=== PATIENT | female | born 1945 | race Caucasian/White ===

== ENCOUNTER 2016-11-27 14:05 | Emergency (ER) | payer MEDICARE, OTHER | END 2016-11-27 15:35 | disposition home or self-care (01) | LOC: D.ER 14:05 | DX: L03.116 Cellulitis of left lower limb (principal); J45.909 Unspecified asthma, uncomplicated ==

== ENCOUNTER → 2017-06-02 09:56 | Outpatient (CLI) | payer MEDICARE, OTHER ==
[2015-11-13 09:22] VITALS: BMI 23.8
[~2017-06-02 09:56] MED LIST: ADVAIR 250/501 DISK INH; ASPIRIN 81 MG E81 MG PO; BETAPACE 80 MG80 MG PO; BUSPIRONE HCL30 MG PO; CYCLOBENZAPRINE10 MG PO; CYMBALTA60 MG PO; FLEXERIL10 MG PO; HEART MED PO; HYDROCODONE-APA1 TAB PO; K-TAB10 MEQ PO; MULTAQ400 MG PO; NEXIUM40 MG PO; NITROSTAT0.4 MG SL; NORCO 10/325 TA1 TA1 PO; PHENERGAN25 M1 PO; PLAVIX75 MG; PREMARIN0.625 MG PO; PROTONIX40 MG PO; SINGULAIR10 MG PO; SKELAXIN800 MG PO; SPIRIVA18 MCG INH; TIROSINT25 MCG PO; TOPROL XL25 MG PO; TORADOL10 MG PO; ULTRAM50 MG PO; VESICARE5 MG PO; ZANAFLEX2 M1 PO
== END | disposition home or self-care (01) ==
LOC: D.US 09:56
DX: R31.9 Hematuria, unspecified (principal)

== ENCOUNTER → 2017-06-08 10:17 | Outpatient (CLI) | payer MEDICARE, OTHER ==
[2015-11-13 09:22] VITALS: BMI 23.8
== END | disposition home or self-care (01) ==
LOC: D.CT 10:17
DX: N28.1 Cyst of kidney, acquired (principal)

== ENCOUNTER → 2018-05-25 08:00 | Outpatient (CLI) | payer MEDICARE, OTHER ==
[2015-11-13 09:22] VITALS: BMI 23.8
== END | disposition home or self-care (01) ==
LOC: D.MAMMO 05-04 16:00
PROVIDERS: ATTEND Family Medicine
DX: Z12.31 Encounter for screening mammogram for malignant neoplasm of breast (principal)

== ENCOUNTER → 2018-12-28 12:56 | Outpatient (CLI) | payer MEDICARE, OTHER ==
[2015-11-13 09:22] VITALS: BMI 23.8
[~2018-12-28 12:56] MED LIST changes: +CARDIZEM120 MG PO; +HYDRALAZINE HCL25 MG PO; +LINZESS72 MCG PO; +VITAMIN D250000 UNIT PO
--- NOTE | 2019-01-08 11:40 | EC ---
PATIENT:CHARLETTE ZACARIAS DATE OF SERVICE: 12/28/18 SEX: F MEDICAL RECORD: [id number] DATE OF : 49 LOCATION:[facility] AGE OF PATIENT: 73 ADMISSION DATE: 12/28/18 REFERRING PHYSICIAN: INTERPRETING PHYSICIAN: LIBAN LAWSON MD ECHOCARDIOGRAM REPORT ECHO CHARGES 4 ECHO COMPLETE Date: 12/28/18 CLINICAL DIAGNOSIS: SVT/MR/SOB H/O HTN ECHOCARDIOGRAPHIC MEASUREMENTS (adult normal given) AC root (d.<3.7cm) 2.9 cm LV Septum d (<1.2 cm> 1.1 cm Valve Excursion 1.9 cm LV Septum (systole) 1.5 cm Left Atria (s.<4.0cm> 2.9 cm LVPW d(<1.2cm) 1.1 cm RV (d.<2.3cm) 3.3 cm LVPW (sytole) 1.6 cm LV diastole(<5.6CM) 4.5 cm MV E-F(>70mm/sec) cm LV systole 2.7 cm LVOT Diameter 2.0 cm MV exc.(>10mm) cm Est.ejection fraction (50-75%) % DOPPLER: LVIT cm/sec A 77.0 cm/sec E 65.0 cm/sec LA cm/sec RVSP 29.0 mmHg LVOT 97.0 cm/sec AOP1/2T m/s Asc. Ao 134 cm/sec RVOT 58.0 cm/sec RA cm/sec PA 86.0 cm/sec AV Gradient Peak 7.2 mmHg AV Mean 3.7 mmHg AV Area 1.9 cm MV Gradient Peak 3.9 mmHg MV Mean 1.3 mmHg MV Area cm COMMENTS: OP - HC Bottom Filler: 1 [place] General Manager Land Department: 1 Dr. Lawson TAPE# PACS Pericardial Effusion Y DATE OF SERVICE: FINDINGS: 1. Left ventricular chamber size is within normal limits. Left ventricular systolic function is normal. Overall ejection fraction estimated at 55% to 60%. 2. Left atrium, right atrium, and right ventricular chamber sizes are within normal limits. 3. Valvular structures have normal structure and motion. 4. Doppler interrogation reveals mild mitral regurgitation, mild tricuspid regurgitation, no other valvular insufficiency or stenosis. Pulmonary systolic ECHOCARDIOGRAM REPORT [id number] CHARLETTE ZACARIAS pressure is normal, estimated at 29 mmHg. 5. Small pericardial effusion is present. This is not hemodynamically significant. No evidence of left ventricular thrombus. TRANSINT:[id number] Voice Confirmation ID: [id number] DOCUMENT ID: [id number] LIBAN LAWSON MD at 1140 CC: [id number] DICTATION DATE: 12/30/18 1016 SERVICE DELIVERY MANAGEMENT CONSULTANT: 12/30/18 1131 DEP CLI 12/28/18 [id number] [place] [address]
== END | disposition home or self-care (01) ==
LOC: D.HCCECHO 12:56
PROVIDERS: ATTEND Internal Medicine Interventional Cardiology
DX: R06.00 Dyspnea, unspecified (principal)

== ENCOUNTER → 2019-01-17 09:47 | Outpatient (CLI) | payer MEDICARE, OTHER ==
[2015-11-13 09:22] VITALS: BMI 23.8
--- NOTE | 2019-01-23 10:41 | ST ---
PATIENT:CHARLETTE ZACARIAS MEDICAL RECORD: [id number] SEX: F LOCATION:[facility] ORDER #: ADMISSION DATE: 01/17/19 AGE OF PATIENT: 73 REFERRING PHYSICIAN: INTERPRETING PHYSICIAN: LIBAN THOMPSON MD DATE OF SERVICE: 01/17/2019 PROCEDURE: Nuclear stress test. INDICATION: Angina, hypertension and dysrhythmia ? supraventricular tachycardia. She was exercised on standard Lexiscan protocol with 27 mCi of sestamibi injected at peak stress, 8 mCi were used previously for rest images. FINDINGS: Gated SPECT reveals preserved ejection fraction at 64% with good wall motioning and thickening and brightening throughout all segments. SPECT imaging Cardiolite was used as myocardial perfusion agent. There is reversible ischemia anteriorly and apically. This includes the basal, mid, apical anterior segments as well as the apex itself. The degree of reversibility is moderate. The amount of myocardium involved is moderate. OVERALL IMPRESSION: This is an intermediate risk nuclear stress test showing reversible ischemia throughout the anterior and apical segment suggestive of hemodynamically significant coronary artery disease. TRANSINT:[id number] Voice Confirmation ID: [id number] DOCUMENT ID: [id number] LIBAN THOMPSON MD at 1041 CC: NOAH KIRBY [id number] DICTATION DATE: 01/18/19819 FRONT SIGHT ATTACHER: 01/19/19 0208 DEP CLI 01/17/[address] [address]
== END | disposition home or self-care (01) ==
LOC: D.HCCARDIO 09:47
PROVIDERS: ATTEND Internal Medicine Interventional Cardiology
DX: I20.9 Angina pectoris, unspecified (principal)

== ENCOUNTER 2019-01-25 09:02 | Outpatient (CLI) | payer MEDICARE, OTHER ==
[~2019-01-25] VITALS: Ht 170.2 cm; Wt 72.7 kg
--- NOTE | ~2019-01-25 | HEMODYNAMI ---
PATIENT:CHARLETTE ZACARIAS MEDICAL RECORD: [id number] : 49 LOCATION:[facility] ADMISSION DATE: 01/25/19 Generatedon:01/25/201913:07 Patient name: CHARLETTE ZACARIAS Patient #: [id number] SSN: [id number] : 1945 Date of study: 01/25/2019 Page: Of Hemodynamic Procedure Report Patient Data Patient Demographics Procedure consent was obtained First Name: CHARLETTE Gender: Female Last Name: DEANN : 1945 Middle Initial: L Age: 73 year(s) Patient #: [id number] Race: SSN: [id number] Additional ID: [id number] Contact details [address]: [address] [place] [address] ROAD State: [place] City: [place] Zip code: [address] Past Medical History Performed procedures and imaging results Date Procedure Procedure Results Comments Stress testing Positive->Intermediate with SPECT MPI risk Allergies Allergen Reaction Date Comments Reported Other allergy 06/15/2015 penicillin, sulfa Other allergy 01/25/2019 PCN, SULFA Admission Admission Data Admission Date: 01/25/2019 Admission Time: 9:02 Arrival Date: 01/25/2019 Arrival Time: 0:00 Height (in.): 67 BSA: 1.82 (m2) Height (cm.): 170.18 BMI: 24.59 (kg/m2) Weight (lbs.): 157 Weight (kg.): 71.21 Lab Results Lab Result Date: 01/25/2019 Lab Result Time: 0:00 Biochemistry Name Units Result Min Max BUN mg/dl 30 --(----)-* 7 18 Creatinine mg/dl 1.9 --(----)-* 0.6 1.3 eGFR ml/min 28 *-(----)-- 90 120 NONAFRICAN CBC Name Units Result Min Max Hematocrit % 37.9 *-(----)-- 42 54 Hemoglobin g/dl 12.6 -*(----)-- 13.5 17.5 Procedure Procedure Types Cath Procedure Diagnostic Procedure [facility] w/Coronaries Procedure Description Procedure Date Procedure Date: 01/25/2019 Procedure Start Time: 12:56 Procedure End Time: 13:05 Procedure Staff Name Function Fran Lawson MD Performing Physician Demi Hendricks RT Monitor Luisa Washington RT Scrub Shana Covington RN Nurse Procedure Data Cath Procedure Fluoroscopy Diagnostic fluoroscopy Total fluoroscopy Time: 1.2 time: 1.2 min min Diagnostic fluoroscopy Total fluoroscopy dose: 238 dose: 238 mGy mGy Contrast Material Contrast Material Type Amount (ml) Isovue 300 55 Entry Location Entry Primary Successful Side Size Upsize Upsize Entry Closure Ruiz ccessful Closure Location (Fr) 1 (Fr) 2 (Fr) Remarks Device Remarks Radial Right 6 Fr Mechanical artery Short Compression Estimated blood loss: 5 ml Diagnostic catheters Device Type Used For End Catheter Placement DIAGNOSTIC [place] 110cm 5 Procedure Fr catheter ([id number]) Procedure Complications No complications Procedure Medications Medication Administration Route Dosage Oxygen etCO2 Nasal cannula 2 l/min Lidocaine 2% added to field 20 Heparin Flush Bag added to field 2 bags (1000units/500ml NS) 0.9% NaCl I.V. 100 ml/hr Radial Cocktail I.A. 1 syringe (Verapamil 2mg/Nitro 400mcg/Heparin 1500units) Versed I.V. 2 mg Fentanyl I.V. 100 mcg Versed I.V. 2 mg Fentanyl I.V. 100 mcg Hemodynamics Rest BSA: 1.82 (m2) O2 Consumption: Estimated: 174.55 (ml/min) O2 Consumption indexed : Estimated:95.91 (ml/min/m) Heart Rate: 81 (bpm) Snapshots Pre Cath Intra NCS Post Cath Vital Signs Time Heart Resp SPO2 etCO2 NIBP (mmHg) Rhythm Pain Sedation Rate (ipm) (%) (mmHg) Status Level (bpm) 12:48:40 77 12 97 43.2 172/84(126) NSR 0 (11) 10(A) , No pain 12:53:00 78 16 95 19.7 154/80(122) NSR 0 (11) 10(A) , No pain 12:57:24 75 19 96 36.3 149/70(125) NSR 0 (11) 10(A) , No pain 13:01:36 76 14 95 45.4 118/66(94) NSR 0 (11) 9(A) , No pain 13:04:14 77 21 96 37.1 123/68(93) NSR 0 (11) 10(A) , No pain Medications Time Medication Route Dose Verified Delivered Reason Notes Effectiveness by by 12:54:20 Oxygen etCO2 2 l/min Fran Saldana used for Nasal Renny Covington RN procedure cannula 12:54:29 Lidocaine 2% added 20ml Fran Peters for local to vial Renny Lawson MD anesthetic field 12:54:35 Heparin Flush added 2 bags Fran Peters used for Bag to Renny Lawson MD procedure (1000units/500ml field NS) 12:54:44 0.9% NaCl I.V. 100 Fran Saldana Per ml/hr Renny Covington RN physician 12:56:36 Versed I.V. 2 mg Fran Saldana for sedation Renny Covington RN 12:56:42 Fentanyl I.V. 100 mcg Fran Saldana for sedation Renny Covington RN 12:57:52 Radial Cocktail I.A. 1 Fran Peters for (Verapamil syringe Renny Lawson MD vasodilation 2mg/Nitro 400mcg/Heparin 1500units) 13:00:01 Versed I.V. 2 mg Fran Saldana for sedation Renny Covington RN 13:00:04 Fentanyl I.V. 100 mcg Fran Saldana for sedation Renny Covington RN Procedure Log Time Note 12:28:02 Informed consent obtained and on chart 12:29:04 Procedure Status Elective Heart Cath (OP). 12:29:05 Time tracking: Stay late (Procedures after 5:00pm) 12:29:09 Plan of Care:Hemodynamics will remain stable., Cardiac rhythm will remain stable., Comfort level will be maintained., Respiratory function will remain adequate., Patient/ family verbilizes understanding of procedure., Procedure tolerated without complication., Recovers from procedure without complications.. 12:29:21 H&P Date Dictated: 01/10/2019 Within 30 days and on chart., H&P Addendum completed by physician on day of procedure. (MUST COMPLETE FOR ALL OUTPATIENTS). 12:29:58 Patient allergic to Other allergyPCN, SULFA 12:30:58 Luisa NIELSEN(R) sent for patient. Start room use. 12:31:33 Lab Result : BUN 30 mg/dl 12::33 Lab Result : Creatinine 1.9 mg/dl 12::33 Lab Result : eGFR NONAFRICAN 28 ml/min 12::33 Lab Result : Hematocrit 37.9 % 12::33 Lab Result : Hemoglobin 12.6 g/dl 12:31:36 Lab results completed and on chart. 12:32:13 Stress Test: yes; abnormal ANTERIOR AND APICAL 12:34:52 ACC Patient presents with Stable Angina CCS Anginal Class 3--Marked limitation of physical activity, angina occurs with ordinary activity.. 12:37:53 Patient received from Pre/Post Procedure Room to CCL 1 Alert and oriented. Tansferred to table in Supine position. 12:37:55 Warm blankets applied, and terrence hugger turned on for patient comfort. 12:37:55 Correct patient and procedure confirmed by team. 12:37:56 ECG and BP/O2 sat monitors applied to patient. 12:47:22 Vital chart was started 12:47:23 Full Disclosure recording started 12:47:25 Pre-procedure instructions explained to patient. 12:47:25 Pre-op teaching completed and patient verbalized understanding. 12:47:27 Family in patients room. 12:47:30 Patient NPO since Midnight. 12:47:33 Is the patient allergic to Iodine/contrast media? No. 12:47:34 Is patient on blood thinner?No 12:47:39 Patient diabetic? No. 12:47:43 Patient not . Patient is over age 55. 12:47:47 Previous problem with sedation/anesthesia? No ? 12:47:49 Snore? Yes 12:47:51 Sleep apnea? No 12:47:52 Deviated septum? No 12:47:53 Opens mouth fully? Yes 12:47:56 Sticks out tongue? Yes 12:47:57 Airway obstruction? No ? 12:48:06 Dentures? Yes IN TIGHT 12:48:09 Modified Abner's test Ulnar < 7 seconds 12:48:12 Patient pain scale 0/10 ?. 12:48:19 IV patent on arrival in left hand with 0.9% NaCl at [facility]. 12:48:26 Risk of Mortality: .2 12:48:31 Risk of blood transfusion: .6 12:48:35 Risk of JANET: 3.6 12:48:39 Right Radial & Right Groin area was prepped with chlora-prep and draped in sterile fashion 12:48:40 Alarms reviewed by R. N. 12:48:41 Sharps counted by scrub and verified by R.N. 12:48:44 Use device set Radial Dx or PCI 12:48:45 ACIST Syringe (05387) opened to sterile field. 12:48:49 Medline Cath Pack ([id number]) opened to sterile field. 12:48:49 Bag Decanter (2002S) opened to sterile field. 12:48:50 ACIST Hand Control (60606) opened to sterile field. 12:48:50 ACIST Manifold (86226) opened to sterile field. 12:48:51 Tegaderm 4 x 4 (1626W) opened to sterile field. 12:48:52 MBrace Wrist Support ([id number]) opened to sterile field. 12:48:53 EMERALD Guide Wire (618-357) opened to sterile field. 12:48:54 SHEATH 6FR RAIN (0567599) opened to sterile field. 12:54:20 Oxygen 2 l/min etCO2 Nasal cannula was administered by Shana Covington RN; used for procedure; Verbal order read back and verified. 12:54:29 Lidocaine 2% 20ml vial added to field was administered by Fran Lawson MD; for local anesthetic; Verbal order read back and verified. 12:54:35 Heparin Flush Bag (1000units/500ml NS) 2 bags added to field was administered by Fran Lawson MD; used for procedure; Verbal order read back and verified. 12:54:36 Patient Height : 67 inches 12:54:40 Patient Weight : 157 lbs 12:54:44 0.9% NaCl 100 ml/hr I.V. was administered by Shana Covington RN; Per physician; Verbal order read back and verified. 12:54:44 Arrival Date: 01/25/2019 12:00:00 AM 12:55:06 --------ALL STOP TIME OUT------ 12:55:06 Final Timeout: patient, procedure, and site verified with staff and physician. All members of the team are in agreement. 12:55:07 Right Radial & Right Groin site verified by team. 12:55:41 Fire Safety Assessment: A--An alcohol-based skin anteseptic being used preoperatively., C--Open oxygen or nitrous oxide is being used., D--An ESU, laser, or fiber-optic light is being used. 12:55:44 Physical assessment completed. ASA score P 2 - A patient with mild systemic disease as per Fran Lawson MD. 12:55:47 4) 15-29 Severley reduced kidney function. 12:55:52 Maximum allowable contrast dose (3.7 X eGFR X 0.75)78 ml. 12:55:55 Sedation plan: IV Moderate Sedation Medication:Versed, Fentanyl 12:56:03 Procedure started. 12:56:09 Local anesthetic to right radial artery with Lidocaine 2% by Fran Lawson MD.INITIAL ACCESS ONLY 12:56:36 Versed 2 mg I.V. was administered by Shana Covington RN; for sedation; Verbal order read back and verified. 12:56:42 Fentanyl 100 mcg I.V. was administered by Shana Covington RN; for sedation; Verbal order read back and verified. 12:57:09 Baseline sample Acquired. 12:57:13 Rhythm: sinus rhythm 12:57:25 A 6 Fr Short sheath was inserted into the Right Radial artery 12:57:52 Radial Cocktail (Verapamil 2mg/Nitro 400mcg/Heparin 1500units) 1 syringe I.A. was administered by Fran Lawson MD; for vasodilation; Verbal order read back and verified. 12:58:14 A DIAGNOSTIC [place] 110cm 5 Fr catheter ([id number]) was advanced over the wire and used for Procedure. 12:58:24 LV gram done using BELTRÁN 12:58:26 Injector settings: Ml/sec: 5, Volume: 15, 12:59:02 EF : 60 % 12:59:32 LCA angiography performed. 13:00:01 Versed 2 mg I.V. was administered by Shana Covington RN; for sedation; Verbal order read back and verified. 13:00:04 Fentanyl 100 mcg I.V. was administered by Shana Covington RN; for sedation; Verbal order read back and verified. 13:00:34 RCA angiography performed. 13:00:37 Catheter removed. 13:00:41 ZEPHYR REGULAR TR BAND (438369) opened to sterile field. 13:00:46 Procedure ended.(Physican Out) 13:01:35 Sheath removed intact; hemostasis achieved with Mechanical Compression to the Right Radial artery. 13:01:40 Fluoroscopy time 01.20 minutes. 13:01:55 Fluoroscopy dose: 238 mGy 13:01:55 Flurop Dose total: 238 13:02:02 Dose Area Product 10914 mGy/cm. 13:02:08 Contrast amount:Isovue 300 55ml. 13:02:10 Maximum allowable dose exceeded? No. 13:02:12 Sharps counted by scrub and verified by R.N. 13:02:14 Barney band inflated with 8cc of air. 13:02:17 Post-procedure physical assessment completed. ASA score P 2 - A patient with mild systemic disease as per Fran Lawson MD. 13:02:24 Post procedure rhythm: unchanged. 13:02:27 Estimated blood loss: 5 ml 13:02:28 Post procedure instruction explained to patient.Patient verbalizes understanding. 13:02:28 Patient needs reinforcement of post procedure teaching. 13:04:21 Procedure and supply charges have been captured, reviewed, submitted and are correct. 13:04:30 Procedure Complication : No complications 13:04:44 Vital chart was stopped 13:04:45 [facility] Findings: mild to moderate CAD (<70%) 13:04:48 Operative report dictated upon procedure completion. 13:04:48 See physician's report for complete and final results. 13:05:24 Report given to Pre/Post Procedure Room. 13:05:26 Patient transfered to Pre/Post Procedure Room with Bed. 13:05:27 Procedure ended. 13:05:27 Full Disclosure recording stopped 13:05:32 End room use (Document Last) 13:06:20 End room use (Document Last) 13:06:40 End room use (Document Last) Device Usage Item Name Manufacture Quantity Catalog Hospital Part Current Minima l Lot# / Number Charge Number Stock Stock Serial# Code ACIST Acist 1 86673 554558 [id number] [id number] 20 Syringe Medical (52079) Systems Inc Medline Medline 1 [id number] 17407 328891 5 Cath Pack ([id number]) Bag Microtek 1 859841 45314 245668 5 Decanter Medical Inc. () ACIST Hand Acist 1 70200 782943 956918 408817 5 Control Medical (82531) Systems Inc ACIST Acist 1 11899 928266 340496 272262 5 Manifold Medical (40056) Systems Inc Tegaderm 4 3M 1 1626W 432336 673819 503339 5 x 4 (1626W) MBrace Advanced 1 140-0250-00 695341 04392 590723 5 Wrist Vascular Support Dynamics ([id number]) EMERALD Cardinal 1 502-455 138839 334439 443134 5 Guide Wire Health (091-455) SHEATH 6FR Cardinal 1 0964691 217795 4574184 520964 5 [facility] (8330465) DIAGNOSTIC Terumo 1 40-5823 675874 217396 032101 5 [place] 110cm 5 Fr catheter (545641) ZEPHYR Cardinal 1 494545 062668 8829231 713657 5 REGULAR TR Health BAND (254845) Signature Audit [place] Stage Time Signature Unsigned Intra-Procedure 01/25/2019 Demi Hendricks 1:06:20 PM RT(R) Intra-Procedure 01/25/2019 Shana Covington RN 1:06:40 PM Intra-Procedure 01/25/2019 Fran Lawson 1:07:13 PM [facility] [address] [place] [address]
[~2019-01-25 09:02] MED LIST changes: -CARDIZEM120 MG PO; -HYDRALAZINE HCL25 MG PO; -LINZESS72 MCG PO; -VITAMIN D250000 UNIT PO
[2019-01-25] MEDS ORDERED: LINZESS72 MCG PO (09:24)
[2019-01-25] MEDS ORDERED: CARDIZEM120 MG PO (09:26)
[2019-01-25] MEDS ORDERED: VITAMIN D250000 UNIT PO (09:27)
[2019-01-25] MEDS ORDERED: HYDRALAZINE HCL25 MG PO (09:28)
[2019-01-25] MEDS ORDERED: ULTRAM50 MG PO (09:28)
[2019-01-25 09:36] VITALS: BP 151/68; Ht 170.2 cm; Wt 72.7 kg
[2019-01-25 09:44] LABS: HEMATOCRIT 37.9 % (36.0-48.0); HEMOGLOBIN 12.6 g/dL (12-16); LYMPHOCYTES 20.6 % (15-50); MCH 28.4 pg (26.0-34.0); MCHC 33.2 g/dL (31.0-37.0); MCV 85.4 fL (80.0-100.0); MEAN PLATELET VOLUME 9.5 fL (7.4-10.4); NEUTROPHILS 60.6 % (40-80); PLATELET COUNT 172 10x3/uL (130-400); RBC 4.44 10x6/uL (4.00-5.40); RDW 13.8 % (11.5-14.5)
[2019-01-25 09:59] LABS: ANION GAP 12.4 mmol/L (8-16); CALCIUM 9.3 mg/dL (8.5-10.1); CARBON DIOXIDE 26.8 mmol/L (21.0-32.0); CHOL - HDL RATIO 3.2 ratio (2.3-4.1); CREATININE - SERUM 1.9 mg/dL (0.6-1.3); POTASSIUM - SERUM 4.2 mmol/L (3.5-5.1)
--- NOTE | 2019-01-25 12:00 | NUR ---
LABS NOTED, FLUIDS STARTED PER PROTOCOL.
--- NOTE | 2019-01-25 13:10 | NUR ---
PT RECEIVED VIA STRETCHER FROM ELECTRICAL UNIT REBUILDER FOR RECOVERY. PT SLEEPING, BUT VERBALLY AROUSABLE. PT DENIES PAIN OR DISCOMFORT. PT PLACED ON CARDIAC MONITORS, O2 PLACED AT 2L/NC. IV PATENT INFUSING VIA ORDERS TO L ARM. ZYPHER BAND AND IMMOBILIZER TO R WRIST, NO ACTIVE BLEEDING OR HEMATOMA NOTED. ARM PINK AND WARM. PT INSTRUCTED NOT TO USE ARM FOR PULLING SHE VERBALIZED UNDERSTANDING. HR NSR RATE 78, BP 135/64, RR 11, SAT 95. CALL LIGHT IN REACH, FAMILY AT BEDSIDE
--- NOTE | 2019-01-25 13:30 | NUR ---
PT RESTING W EYES CLOSED. ZBAND IN PLACE, NO BLEEDING OR SWELLING NOTED. DRESSING CDI. VSS. CALL LIGHT IN REACH. HR 74, BP 141/66, RR 9, SAT 97. AT BEDSIDE
--- NOTE | 2019-01-25 14:00 | NUR ---
PT RESTING COMFORTABLY, DENIES PAIN OR DISCOMFORT. 4CC AIR REMOVED FROM Z BAND, NO BLEEDING OR SWELLING NOTED. ARM PINK AND WARM, CAP REFILL BRISK. VSS. CALL LIGHT IN REACH, AT BEDSIDE.
--- NOTE | 2019-01-25 14:30 | NUR ---
ZBAND AND IMMOBILIZER IN PLACE. 4 ADD'L CC AIR REMOVED W/O BLEEDING NOTED. HR 75, BP 141/63, RR 11, SAT 95 ON ROOM AIR. O2 REMOVED. HOB ELEVATED, SANDWICH TRAY AND DRINK SERVED. PT DENIES PAIN OR ADD'L NEEDS AT THIS TIME.
--- NOTE | 2019-01-25 14:49 | NUR ---
DISCHARGE INSTRUCTIONS REVIEWED W PT AND , BOTH VERBALIZED UNDERSTANDING. PT FINISHING UP LUNCH TRAY. 3 ADD'L CC AIR REMOVED FROM Z BAND, NO BLEEDING NOTED.
--- NOTE | 2019-01-25 15:00 | NUR ---
IV REMOVED W CATH INTACT, MONITORS REMOVED. DR THOMPSON AT BEDSIDE, DISCUSSED W PT AND PLAN OF CARE AND PROCEDURE RESULTS. PT UP TO DRESS FOR DISCHARGE.
--- NOTE | 2019-01-25 15:14 | NUR ---
Z BAND AND REMAINING AIR REMOVED, 2X2 AND TEGADERM DRESSING APPLIED. NO BLEEDING OR HEMATOMA NOTED. PT DISCHARGED VIA WC TO WAITING IN PRIVATE VEHICLE.
--- NOTE | 2019-01-28 09:28 | OP ---
PATIENT NAME: CHARLETTE ZACARIAS MEDICAL RECORD: [id number] :49 LOCATION:[facility] ADMISSION DATE: SURGEON: LIBAN THOMPSON MD DATE OF OPERATION: 01/25/2019 PROCEDURES: 1. Left heart catheterization. 2. Selective coronary angiography. 3. Left ventriculogram. INDICATION: Chest pain compatible with angina and abnormal nuclear stress test. DESCRIPTION OF PROCEDURE: After informed consent was obtained and after a detailed description of the risks, benefits as well as alternative therapies, the patient elected to proceed with angiogram and heart catheterization. The right radial area was prepped and draped in normal sterile fashion. Right radial artery was cannulated via modified Seldinger technique with placement of 5-[place] sheath. All catheters exchanged through this sheath. FINDINGS: Left ventriculogram was performed in standard 30-degree BELTRÁN view, reveals good cardiac wall motion throughout all segments. Overall ejection fraction estimated at 65%. SELECTIVE CORONARY ANGIOGRAPHY: Left main, left anterior descending, left circumflex, right coronary artery are all smooth-walled vessels with no angiographic evidence of coronary artery disease. OVERALL IMPRESSION: 1. No angiographic evidence of coronary artery disease. 2. Normal left ventricular systolic function. Chest pain is noncardiac in etiology. No further cardiac workup needs to be ascertained. TRANSINT:[id number] Voice Confirmation ID: [id number] DOCUMENT ID: [id number] LIBAN THOMPSON MD at 0928 CC: [id number] DICTATION DATE: 01/25/19 1304 LAW WRITER: 01/25/19 1314 DEP CLI 01/25/19 [place] [id number] [place] [id number]
== END 2019-01-25 15:15 | disposition home or self-care (01) ==
LOC: D.CATH 09:02
PROVIDERS: ATTEND Internal Medicine Interventional Cardiology
DX: I25.110 Atherosclerotic heart disease of native coronary artery with unstable angina pectoris (principal); R94.30 Abnormal result of cardiovascular function study, unspecified

== ENCOUNTER 2019-08-07 09:00 | Outpatient (CLI) | payer MEDICARE, OTHER ==
[2019-01-25 09:36] VITALS: BMI 25.1
[~2019-08-07 09:00] MED LIST changes: +CARDIZEM120 MG PO; +HYDRALAZINE HCL25 MG PO; +LINZESS72 MCG PO; +VITAMIN D250000 UNIT PO
== END 2019-08-07 10:00 | disposition home or self-care (01) ==
LOC: D.MAMMO 09:00
PROVIDERS: ATTEND Family Medicine
DX: Z12.31 Encounter for screening mammogram for malignant neoplasm of breast (principal)

== ENCOUNTER → 2020-08-25 20:52 | Outpatient (CLI) | payer MEDICARE ==
[2019-01-25 09:36] VITALS: BMI 25.1
[2020-08-25 21:17] LABS: CHOL - HDL RATIO 2.7 ratio (2.3-4.1); LDL-HDL RATIO 1.5 ratio (1.5-3.5)
== END | disposition home or self-care (01) ==
LOC: D.LABREF 20:52
PROVIDERS: ATTEND Nurse Practitioner Adult Health
DX: E78.5 Hyperlipidemia, unspecified (principal)

== ENCOUNTER → 2020-08-27 15:30 | Outpatient (CLI) | payer MEDICARE ==
[2019-01-25 09:36] VITALS: BMI 25.1
== END | disposition home or self-care (01) ==
LOC: D.MAMMO 15:30
PROVIDERS: ATTEND Family Medicine
DX: Z12.31 Encounter for screening mammogram for malignant neoplasm of breast (principal)